=== PATIENT | female | born 1940 | race Caucasian/White ===

== ENCOUNTER 2016-11-13 08:12 | Outpatient (CLI) | payer MEDICARE, OTHER ==
--- NOTE | 2016-11-13 13:56 | Cat Scan Report ---
CT ABDOMEN AND PELVIS WITHOUT AND WITH CONTRAST: 11/13/16 08:12:00 CLINICAL: Abdominal pain. COMPARISON: None TECHNIQUE: Volumetric acquisition and 1.25 millimeter scan reconstructions without contrast and after the uneventful intravenous injection of 100 cc Omnipaque 300. Consent was obtained prior to the administration of contrast. Oral contrast was also given. FINDINGS: Abdomen: Clear lung bases. Normal liver, gallbladder and bile ducts. Normal stomach, duodenum, pancreas and spleen. Normal adrenal glands and kidneys. The renal collecting systems and ureters are nondilated. With moderate calcification of the abdominal aorta and iliac arteries. Mild ectasia and tortuosity of the aorta and iliac arteries. The small bowel is normal. Normal ascending, transverse and descending colon. The appendix is well imaged and normal. No ascites. No lymphadenopathy. Pelvis: Normal urinary bladder and rectum. The uterus is small and deviates to the left of midline. Measures 6.8 x 3.3 x 4.1 cm. A heterogeneous enhancing mass of the cervix measures 1.8 x 1.7 x 1.4 cm. No other uterine mass is identified. The uterine cavity is nondistended. The ovaries are small and normal. No adnexal mass or free fluid. Bone windows demonstrate no suspicious bone lesion. IMPRESSION:1. Normal abdomen. 2. A 1.8 cm heterogeneous enhancing mass of the cervix and no other uterine mass. 3. Normal ovaries.
== END 2016-11-13 08:13 | disposition home or self-care (01) ==
LOC: SPVIMAG 08:12
PROVIDERS: ATTEND Obstetrics & Gynecology
DX: N85.9 Noninflammatory disorder of uterus, unspecified (principal); I70.0 Atherosclerosis of aorta; I77.819 Aortic ectasia, unspecified site
CPT/HCPCS: 74178; Q9967